=== PATIENT | female | born 2000 | race Caucasian/White ===

== ENCOUNTER 2018-02-27 23:07 | Emergency (ER) | payer MEDICAID, OTHER, SELFPAY ==
[~2018-02-27] VITALS: Ht 165.1 cm; Wt 56.7 kg
[2018-02-27 23:09] VITALS: BP 123/78
== END 2018-02-27 23:51 | disposition home or self-care (01) ==
LOC: ED 23:46
DX: S40.212A Abrasion of left shoulder, initial encounter (principal); X58.XXXA Exposure to other specified factors, initial encounter; Y93.89 Activity, other specified; Y99.8 Other external cause status; Y92.89 Other specified places as the place of occurrence of the external cause
CPT/HCPCS: 99281